=== PATIENT | male | born 1940 | race Caucasian/White ===

== ENCOUNTER 2020-10-06 00:45 | Day surgery (SDC) | payer OTHER, SELFPAY ==
[2020-10-04 09:09] VITALS: BMI 24.0
--- NOTE | 2020-10-04 17:28 | PM.SD2 ---
Same Day Admit/Disch: HPI History of Present Illness Chief complaint: incisional hernia Narrative: Edu Garcia is a 79 year old male Who had coronary artery bypass grafting in July of 2017. He has developed a bulge in the epigastrium as result of his median sternotomy. This is painful and particularly bothers him when he tries to lie on his right side. He was seen in the office and found to have a 3.5 cm incisional hernia in the epigastrium. He is taken to surgery now for incisional hernia repair with mesh as an outpatient by Dr. ch. Patient was also recently seen by his primary care physician, Dr. Song, and diagnosed with out Alzheimer's dementia. He was started on Aricept. He also has a history of COPD, mild LV dysfunction and BPH with obstruction. [facility] Past Medical History Medical History Arthritis Bilateral knees Bilateral cataracts COPD (chronic obstructive pulmonary disease) Coronary artery disease Degenerative disc disease Cervical GERD (gastroesophageal reflux disease) Heart disease Hypercholesterolemia Kidney stones Seasonal allergies Surgical History Surgical History H/O inguinal hernia repair x3 History of open heart surgery Coronary artery bypass graft July 2017, cardiac catheterization July 2017 History of orthopedic surgery Bicep tendon left, October 2004 Family History Family History Mother Family history of Alzheimer's disease, Onset Age: 84 Sibling Family history of cardiovascular disease, Onset Age: 69 Family history of lung disease, Onset Age: 69 Father Cancer Social History Social History Smoking packs per day: 1 Smoking cigarettes per day: 20.0 Years smoked: 40 Smoking pack-years: 40.00 Smoking status: Former smoker Tobacco type: cigarettes Smoking end date: 03/26/97 Alcohol intake: current Substance use: unknown Living arrangements: with family Gender identity (if verbalized by the patient): Male Spiritual care concerns: No Same Day Admit/Disch: Med Pre-admit Medications Home Medications Medication Instructions Recorded Confirmed Type omeprazole 20 mg capsule,delayed 20 mg PO BID #60 cap 02/24/19 10/06/20 Rx release albuterol sulfate 90 mcg/actuation 2 puff INHALATION PRN PRN gm 09/15/19 10/06/20 History aerosol inhaler carvedilol 3.125 mg tablet 3.125 mg PO BID tablet 09/15/19 10/06/20 History finasteride 5 mg tablet 5 mg PO DAILY tablet 09/15/19 10/06/20 History diphenhydramine HCl 25 mg capsule See Rx Instructions .ROUTE .COMPLEX 09/16/19 10/06/20 History rosuvastatin 40 mg tablet 40 mg PO DAILY 09/16/19 10/06/20 History tiotropium 2.5 mcg-olodaterol 2.5 2 puff INHALATION DAILY 09/16/19 10/06/20 History mcg/actuation mist for inhalation furosemide 40 mg tablet 40 mg PO DAILY PRN tablet 08/30/20 10/06/20 History aspirin 325 mg tablet,delayed 325 mg PO HS tablet 08/31/20 10/06/20 History release tamsulosin 0.8 mg PO QPM 10/04/20 10/06/20 History acetaminophen-codeine 1 tablet PO Q6H PRN #10 tablet 10/06/20 Rx ibuprofen 600 mg PO Q6H PRN #14 tablet 10/06/20 Rx Exam Const: General: comfortable, no acute distress, alert and awake HENMT: Head: normocephalic and atraumatic Mouth: Yes Normal oral and palatal mucosa present Eyes: Conjunctivae: conjunctivae normal Pupils: Equal, round and reactive pupils present EOM: EOMs intact bilaterally Neck: Neck: normal visual inspection, no lymphadenopathy and nontender Resp: Effort & Inspection: normal respiratory effort Auscultation: clear to auscultation bilaterally Cardio: Rate: regular rate Rhythm: regular rhythm Heart sounds: no gallops, no murmurs and no rubs GI: Inspection: non-distended, scar ( sternotomy) and visible herniation (
--- NOTE | 2020-10-06 06:54 | WPDHPUPDATE1 ---
History and Physical Update Update Date/Time: 10/06/20 06:54 History and Physical has been reviewed, including an updated exam of the patient. There are NO changes in the patient's condition. Risks, benefits, and alternatives have been discussed and questions answered. Patient agrees to proceed with procedure.
[2020-10-06] MEDS: ACETAMINOPHEN 500 MG TABLET 1000 MG PO (10:38)
[2020-10-06] MEDS: LACTATED RINGERS 1,000 ML 30 ML IV CONT (10:50)
[2020-10-06 10:54] VITALS: BP 125/65; PULSE 68; TEMP 36.2; O2SAT 94
[2020-10-06] MEDS: KETOROLAC 15 MG/ML VIAL (*BKC) IV PUSH (11:05)
--- NOTE | 2020-10-06 11:24 | WPDANESEPPF ---
Anes - Initial Pre Proc Eval Procedure: Operation Date: 10/06/20 12:00 Proposed Procedures p Repair Epigastric Incisional Hernia with Mesh - Hugh Barillas MD Date/Time: 10/06/20 11:24 Surgeon: Hugh Barillas MD Pre Op Diagnosis: incisional hernia Patient Data Age: 79 Gender: M Height: 1.73 m Weight: 71.67 kg Last Vital Signs Temp 36.2 C L 10/06/20 10:54 Pulse 68 10/06/20 10:54 BP 125/65 10/06/20 10:54 Pulse Ox 94 10/06/20 10:54 Allergies Allergy/AdvReac Type Severity Reaction Status Date / Time donepezil [From Aricept] Allergy Diarrhea,NA Verified 10/06/20 10:19 USEA,HEADAC HE Home Medications Medication Instructions Recorded Confirmed Type omeprazole 20 mg capsule,delayed 20 mg PO BID #60 cap 02/24/19 10/06/20 Rx release albuterol sulfate 90 mcg/actuation 2 puff INHALATION PRN PRN gm 09/15/19 10/06/20 History aerosol inhaler carvedilol 3.125 mg tablet 3.125 mg PO BID tablet 09/15/19 10/06/20 History finasteride 5 mg tablet 5 mg PO DAILY tablet 09/15/19 10/06/20 History diphenhydramine HCl 25 mg capsule See Rx Instructions .ROUTE .COMPLEX 09/16/19 10/06/20 History rosuvastatin 40 mg tablet 40 mg PO DAILY 09/16/19 10/06/20 History tiotropium 2.5 mcg-olodaterol 2.5 2 puff INHALATION DAILY 09/16/19 10/06/20 History mcg/actuation mist for inhalation furosemide 40 mg tablet 40 mg PO DAILY PRN tablet 08/30/20 10/06/20 History aspirin 325 mg tablet,delayed 325 mg PO HS tablet 08/31/20 10/06/20 History release tamsulosin 0.8 mg PO QPM 10/04/20 10/06/20 History Patient hx anesthesia problems: none Family hx anesthesia problems: none PMFSH Past Medical History Medical History Arthritis Bilateral knees Bilateral cataracts COPD (chronic obstructive pulmonary disease) Coronary artery disease Degenerative disc disease Cervical GERD (gastroesophageal reflux disease) Heart disease Hypercholesterolemia Kidney stones Seasonal allergies Surgical History Surgical History H/O inguinal hernia repair x3 History of open heart surgery Coronary artery bypass graft July 2017, cardiac catheterization July 2017 History of orthopedic surgery Bicep tendon left, October 2004 Family History Family History Mother Family history of Alzheimer's disease, Onset Age: 84 Sibling Family history of cardiovascular disease, Onset Age: 69 Family history of lung disease, Onset Age: 69 Father Cancer Social History Social History Smoking packs per day: 1 Smoking cigarettes per day: 20.0 Years smoked: 40 Smoking pack-years: 40.00 Smoking status: Former smoker Tobacco type: cigarettes Smoking end date: 03/26/97 Alcohol intake: current Substance use: unknown Living arrangements: with family Gender identity (if verbalized by the patient): Male Spiritual care concerns: No Anes - Eval Final PreProcedure Day of Procedure 10/06/20 11:24 Patient weight: normal Heart: regular rate and rhythm Lungs: clear to auscultation and normal air movement Airway: Mallampati scale class II Neurological: alert and oriented Last oral intake: >/= 8 hours ASA classification: III Emergent: no Anesthetic plan: proceed Anesthesia type and monitoring: general GIVS and standard monitoring Informed Consent: The patient's anesthetic plan and its attendant risks and benefits were discussed with the patient/family/POA. Questions were solicited and answers provided to the satisfaction of the patient/family/POA.
[2020-10-06] MEDS: ceFAZolin 2 GM/D5W 50 ML 2 GM/50 ML BAG IVPB (12:22)
[2020-10-06] MEDS: BUPIVACAINE HCL 0.5% PF 30 ML VIAL INFILTRATE (12:44)
[2020-10-06 13:29] VITALS: BP 154/88; PULSE 67; RESP 12; TEMP 36; O2SAT 95
--- NOTE | 2020-10-06 13:54 | P.OP_ITS ---
Procedure Note - Detailed Date of Procedure 10/06/20 Pre-op Diagnosis Epigastric incisional hernia Post-op Diagnosis same Procedure Performed repair epigastric incisional hernia with 8.6 cm Parietex underlay mesh Surgeon Hugh Barillas MD Acoustic Engineer Sybil Knox [employer]IMINAL [employer]ICE PROGRAM DIRECTOR Anesthesia MAC and local ( 0.5% Marcaine with epinephrine) Indications patient is an 79-year-old man who had coronary bypass grafting about 3 years ago. At the lower into the median sternotomy he has developed an epigastric incisional hernia which has become painful. He is taken to surgery now for repair with mesh. Findings Showed a 2.5 x 2 cm defect just below and to the right of the xiphoid process. Description of Procedure The patient was checked in the preoperative holding area. He was then taken to surgery and placed in supine position. IV sedation was administered. Prep and drape of the upper abdomen and lower chest was carried out. The proposed incision was marked on the skin. This excised the scar from the median sternotomy over the lower most aspect of the sternum as well as the upper epigastrium. The skin was then excised sharply and discarded. Cautery was used for hemostasis. Dissection was carried down through the subcutaneous until the hernia sac and hernia defect were found. I dissected around the hernia defect and dissected the hernia sac out fully. I then excised the sac from the neck of the hernia and discarded it. I undermined around the hernia defect circumferentially so that the fascia and lower chest tissues were readily evident for transfascial suture placement. I used an 8.6 cm Parietex [place]. I dissected out a space in the retroperitoneal area. The peritoneum was closed with interrupted 3 0 Vicryl suture. I then placed the mesh in the preperitoneal space. It lay out very nicely. Transfascial sutures were placed in the abdominal wall and in the lower chest tissues. 0 Ethibond sutures were used. These were placed in such a fashion that when tied, they would advance the edges of the hernia defect towards 1 another. Four of these sutures were placed. They had the desired effect and created a very snug attachment of the mesh to the anterior chest and upper abdomen. I then closed the hernia defect with [id number] mattress sutures of 0 Ethibond. the repair looked very satisfactory. I infiltrated additional local in the area around the repair. I then closed the subcutaneous with interrupted 3 0 Vicryl suture. The skin was loosely approximated with subcuticular interrupted 4 0 Vicryl suture. The skin was finally closed with a running 4 0 Monocryl skin suture. The wound was dressed with Exofin surgical adhesive. The patient was awakened and taken to outpatient surgery in good condition. Sponge and needle counts were correct x2. Implants A 8.6 cm Parietex hernia mesh system Estimated Blood Loss -5.0 Drains No Packing No Pathology none sent Complications None Condition stable Disposition same day
[2020-10-06 13:55] VITALS: BP 135/73; PULSE 62; RESP 14; O2SAT 95
[2020-10-06 14:15] VITALS: BP 136/71; PULSE 54; RESP 14; O2SAT 99
[2020-10-06 14:45] VITALS: BP 144/76; PULSE 54; RESP 14; O2SAT 99
[2020-10-06 15:00] VITALS: BP 134/62; PULSE 60; RESP 14; O2SAT 96
== END 2020-10-06 15:07 | disposition home or self-care (01) ==
PROVIDERS: PCP Emergency Medicine; Visit Provider Surgery
PROC: 0WQF0ZZ Repair Abdominal Wall, Open Approach (ICD-10-PCS; CPT 49560; principal; 2020-10-06 12:00)
DX: K43.2 Incisional hernia without obstruction or gangrene (principal); J44.9 Chronic obstructive pulmonary disease, unspecified; E78.5 Hyperlipidemia, unspecified; I25.10 Atherosclerotic heart disease of native coronary artery without angina pectoris; M50.30 Other cervical disc degeneration, unspecified cervical region; E78.00 Pure hypercholesterolemia, unspecified; K21.9 Gastro-esophageal reflux disease without esophagitis; Z79.51 Long term (current) use of inhaled steroids; Z79.82 Long term (current) use of aspirin; Z95.1 Presence of aortocoronary bypass graft; Z87.891 Personal history of nicotine dependence
CPT/HCPCS: 49560; 49568; A9270; C1781; C9290; J0690; J1100; J1885; J2405; J2704; J3010; J7120

== ENCOUNTER 2021-10-27 09:59 | Outpatient (CLI) | payer OTHER, SELFPAY ==
--- NOTE | ~2021-10-27 | XR_ITS ---
XR chest 2V DATE: 10/27/2021 10:23 INDICATION: Cough, fever, shortness of breath. TECHNIQUE: PA and lateral views COMPARISON: 07/23/2017 two-view chest FINDINGS: Status post sternotomy and coronary artery bypass graft surgery. Normal heart size. There i s aortic calcification and tortuosity. No hilar or mediastinal enlargement. Bilateral hyperinflation and relative flattening the diaphragm, suggesting COPD. Minimal infiltrate o r atelectasis at the right lung base; otherwise no pulmonary infiltrate or consolidation, pleural eff usion or pulmonary vascular congestion or pneumothorax is detected. Moderate chronic loss of height and anterior wedging of an upper lumbar vertebral body. Osteopenia. D egenerative spurring of the thoracic and lumbar spine. IMPRESSION: Bilateral hyperinflation suggesting COPD Status post sternotomy/CABG Minimal infiltrate or atelectasis at the right lung base; otherwise no active cardiopulmonary disease Reviewed, dictated and finalized at location B. IMPRESSION: Bilateral hyperinflation suggesting COPD Status post sternotomy/CABG Minimal infiltrate or atelectasis at the right lung base; otherwise no active c ardiopulmonary disease
== END 2021-10-27 10:00 | disposition home or self-care (01) ==
PROVIDERS: PCP Family Medicine; Visit Provider Physician Assistant
DX: R05.9 Cough, unspecified (principal); Z95.1 Presence of aortocoronary bypass graft; I70.0 Atherosclerosis of aorta; M85.88 Other specified disorders of bone density and structure, other site
CPT/HCPCS: 71046

== ENCOUNTER 2022-01-09 00:36 | Day surgery (SDC) | payer OTHER, SELFPAY ==
[2022-01-06 15:20] VITALS: BMI 23.4
[2022-01-09] VITALS (25 sets, daily range): BP systolic 70–135; BP diastolic 39–81; PULSE 63–78; RESP 16–24; TEMP 36.3; O2SAT 90–98; BMI 23.1
[2022-01-09 09:01] LABS: Basophils Absolute Auto 0.1 K/mm3 (0.0-0.1); Basophils Percent Auto 0.9 % (0.2-1.2); Eosinophils Absolute Auto 0.2 K/mm3 (0-0.3); Eosinophils Percent Auto 3.1 % (0-4.4); Hematocrit 39.9 % (42.0-52.0); Immature Granulocyte Absolute 0.01 K/mm3 (0.00-0.031); Immature Granulocyte Percent A 0.2 % (0-0.5); Lymphocytes Absolute Auto 1.54 K/mm3 (0.9-3.2); Lymphocytes Percent Auto 26.4 % (18.3-44.2); Mean Corpuscular HGB Conc 32.6 g/dl (32-36); Mean Corpuscular Hemoglobin 29.2 pg (26-34); Mean Corpuscular Volume 89.7 fl (80-100); Mean Platelet Volume 9.2 fl (7.4-10.4); Monocytes Absolute Auto 0.6 K/mm3 (0.1-0.6); Monocytes Percent Auto 10.4 % (2.6-8.5); Neutrophils Absolute Auto 3.5 K/mm3 (1.3-6.7); Platelet Count Result 139 k/mm3 (150-375); Red Blood Count 4.45 M/mm3 (4.6-6.20); White Blood Count 5.8 K/mm3 (4.5-10.0)
[2022-01-09 09:10] LABS: Anion Gap 7 mmol/L (8-16); Blood Urea Nitrogen 27 mg/dL (9-20); Calcium 8.6 mg/dL (8.4-10.2); Carbon Dioxide 25 mmol/L (22-30); Chloride 106 mmol/L (98-107); Estimated CRCL calculation 25 ml/min; Estimated Glomerular Filt Rate 32; Glucose 101 mg/dL (65-110); Potassium 4.2 mmol/L (3.4-5.0); Sodium 138 mmol/L (137-145)
--- NOTE | 2022-01-09 09:36 | WPDMODSED ---
Moderate Sedation Note-Pt Data Patient Data Diagnosis: ischemic cardiomyopathy previous CABG Present Complaint: exertional dyspnea Procedure to be performed/Plan: coronary angiography OK graft angiography radial artery graft angiography saphenous vein graft angiography Allergies Allergy/AdvReac Type Severity Reaction Status Date / Time donepezil [From Aricept] Allergy Diarrhea,NA Verified 01/09/22 08:49 USEA,HEADAC HE Home Medications Medication Instructions Recorded Confirmed Type finasteride 5 mg tablet 5 mg PO DAILY 09/15/19 01/06/22 History diphenhydramine HCl 25 mg capsule 50 mg PO HS 09/16/19 01/06/22 History (Benadryl) rosuvastatin 40 mg tablet 40 mg PO DAILY 09/16/19 01/06/22 History furosemide 40 mg tablet 40 mg PO PRN PRN edema 08/30/20 01/06/22 History aspirin 325 mg tablet,delayed 325 mg PO HS 08/31/20 01/06/22 History release tamsulosin 0.4 mg capsule 0.4 mg PO QPM 10/04/20 01/06/22 History nitroglycerin 0.4 mg sublingual 0.4 mg sublingual Q5M PRN Chest 11/10/20 01/06/22 History tablet (Nitrostat) Pain carvedilol 3.125 mg tablet 6.25 mg PO BID 05/17/21 01/06/22 History pantoprazole 40 mg tablet,delayed 40 mg PO Q12H #180 tabs 10/14/21 01/06/22 Rx release (Protonix) albuterol sulfate 90 mcg/actuation 2 puff inhalation PRN PRN 10/26/21 01/06/22 Rx aerosol inhaler Shortness Of Breath #6.7 grams tiotropium 2.5 mcg-olodaterol 2.5 2 puff inhalation DAILY 11/04/21 01/06/22 History mcg/actuation mist for inhalation (Stiolto Respimat) sacubitril 24 mg-valsartan 26 mg 0.5 tablet PO BID 01/06/22 01/06/22 History tablet (Entresto) Current Medications: Active Medications Sodium Chloride (Normal Saline Iv) 500 mls @ 100 mls/hr IV CONT .Q5H JENI Sedation/Anesthesia: No previous sedation/anesthesia problems (including family history). [facility] Past Medical History Medical History Arthritis Bilateral knees Bilateral cataracts COPD (chronic obstructive pulmonary disease) Coronary artery disease Degenerative disc disease Cervical GERD (gastroesophageal reflux disease) Heart disease Hypercholesterolemia Kidney stones Seasonal allergies Surgical History Surgical History H/O inguinal hernia repair x3 History of incisional hernia repair 10/06/20 repair epigastric incisional hernia with 8.6 cm Parietex underlay mesh History of open heart surgery Coronary artery bypass graft July 2017, cardiac catheterization July 2017 History of orthopedic surgery Bicep tendon left, October 2004 Family History Family History Mother Family history of Alzheimer's disease, Onset Age: 84 Sibling Family history of cardiovascular disease, Onset Age: 69 Family history of lung disease, Onset Age: 69 Father Cancer Social History Social History Smoking packs per day: 1 Smoking cigarettes per day: 20.0 Years smoked: 40 Smoking pack-years: 40.00 Smoking status: Former smoker Tobacco type: cigarettes Second hand tobacco smoke exposure: No Smoking end date: 03/26/97 Alcohol intake: current Drinks per week: 1 Alcohol use details: 1 beer/week Substance use: never Substance use type: does not use Living arrangements: with family Gender identity (if verbalized by the patient): Male Sexual Orientation (if Verbalized by the Patient): Straight or Heterosexual Spiritual care concerns: No Mod Sed Physical Exam Physical Exam Pre Procedural Exam: Normal: Appearance, Neck, Throat, Airway, Lungs, Heart Size, Heart Rate, Heart Rhythm and Neuro Exam and Variation: Extremities ( pulses diminished in the lower extremities) Hours since solid foods: 12 Hours since liquid intake: 12 Mallampati Classification: class II Int
--- NOTE | 2022-01-09 10:35 | WPDCARDPROC ---
Cardiac Cath Procedure Note Date of procedure:: 01/09/22 Performing physician:: Felipe Bhatt MD Indication:: ischemic heart disease with previous CABG ischemic cardiomyopathy abnormal nuclear stress test Brief clinical history:: this is an 81-year-old man known to have coronary disease was referred for bypass grafting previously. He is followed in our office. He is reporting symptoms of worsening exertional shortness of breath. He is known to have reduced ejection fraction of about 30% and stress testing suggested previous inferior infarction. The patient has now been referred for follow-up angiography. He does have chronic kidney disease with a creatinine of 2.0 for this reason I elected to forego left ventriculography. Procedure Procedure performed:: Coronary angiography vein graft angiogr Sara Snow RN, [place] angiography radial artery graft angiography Sedation/Medication given:: fentanyl 25 mill Versed 2 mg case start time 9:49 a.m. case end time 10:32 a.m. sedation provided by Sara Snow RN, trained observer Access site:: right femoral artery Estimated blood loss:: 50 cc Procedure note:: patient was brought to the cardiac catheterization lab in the postabsorptive state where the right femoral triangle was prepared and draped in the normal fashion. Anesthesia was 1% lidocaine infiltrated locally. Using the modified Seldinger technique the right femoral artery was punctured and a 5 Cambodian vascular sheath was placed. The J-wire would not easily advance the from the iliac artery into the central aorta. There was significant atherosclerosis and tortuosity. For that reason I used a Maura wire which advanced to the distal aorta and then down the left iliac artery. Over this system I used a 5 Cambodian JR4 catheter to steer the Maura wire cephalad into the aorta. This wire was then advanced into the thoracic aorta. Over the Maura wire I placed a 5 Cambodian 45 cm sheath to facilitate this procedure given the peripheral arterial disease and tortuosity. Following this I used a 5 Cambodian FL4 catheter to engage and inject the left coronary artery. Then I used a 5 Cambodian JR4 catheter to engage and inject the right coronary artery. This catheter was also used to perform angiography of the vein graft to the circumflex. I then changed for a 5 Cambodian IM catheter which was used to non selectively study the left internal mammary artery as well as to study the vein graft to the diagonal. Following this I injected the stump of the radial artery graft to the right coronary artery using a 5 Cambodian MPA 1 catheter. The cineangiograms were then reviewed and the case was terminated. I elected to pull the sheath in the labor contract analyst as there was some oozing around the arterial puncture site during the last part of the case. There was no accumulating hematoma however. Procedure was otherwise well tolerated and uncomplicated. He will be taken back to the holding area for recovery following manual sheath removal. Findings:: Hemodynamics: Central aortic pressure was 132/82. The left ventricle was not entered during this procedure the left main coronary artery is small to medium in caliber. There was mild atherosclerosis but no significant lesions were seen. The left anterior descending is a medium caliber artery patent down to the apex. There is no significant stenosis in the LAD there is mild atherosclerotic plaquing in the proximal half of the artery. The major diagonal branch has a high-grade stenosis with competitive filling from the patent vein graft. There is no competitive filling in the LAD itself. The LAD then continues around the apex to provide collateral flow to the RPDA. The circumflex is a small diffusely diseased artery which is totally occluded after a very small OM1 branch. Right coronary artery is small in caliber was dominant to the posterior circulation. There is high-grade long area of 99% s
[2022-01-09] MEDS: SODIUM CHLORIDE 0.9% IV 1,000 ML 125 ML IV CONT (11:36)
--- NOTE | 2022-01-09 13:51 | SUR.PHASEII ---
pt BP dropped to 70s/50s. RN & KEY BED INSTALLER at bedside. pt A&Ox4, no hematoma or bleeding at the R groin puncture site. No complaints of pain. RN put the pt flat and bumped IVF to 200cc/hr per KEY BED INSTALLER verbal order. Will stay with pt and monitor vitals Q5 min until stable.
== END 2022-01-09 16:00 | disposition home or self-care (01) ==
PROVIDERS: PCP Family Medicine; Visit Provider Specialist
DX: I25.5 Ischemic cardiomyopathy (principal); R94.39 Abnormal result of other cardiovascular function study; I25.10 Atherosclerotic heart disease of native coronary artery without angina pectoris; I25.810 Atherosclerosis of coronary artery bypass graft(s) without angina pectoris; R06.02 Shortness of breath; R07.9 Chest pain, unspecified; I49.3 Ventricular premature depolarization; N18.30 Chronic kidney disease, stage 3 unspecified; K21.9 Gastro-esophageal reflux disease without esophagitis; Z87.891 Personal history of nicotine dependence; Z79.51 Long term (current) use of inhaled steroids; Z79.82 Long term (current) use of aspirin
CPT/HCPCS: 36415; 80048; 85025; 85055; 93455; C1769; C1887; C1894; J1644; J2250; J3010; J7030; J7040

== ENCOUNTER 2022-02-01 15:58 | Emergency (ER) | payer OTHER, SELFPAY ==
--- NOTE | ~2022-02-01 | XR_ITS ---
EXAMINATION: XR chest 2V DATE: 02/01/2022 17:24 INDICATION: Chest pain TECHNIQUE: PA and lateral views of the chest are obtained. COMPARISON: 10/27/2021 FINDINGS: The lungs are free of acute opacities. No pleural effusion or pneumothorax. The cardiomedia stinal silhouette is normal. There is moderate thoracic spondylosis. There is a chronic compression f racture in the lower thoracic spine. Median sternotomy wires and mediastinal surgical clips are seen, likely from prior coronary artery bypass grafting. IMPRESSION: 1. No acute cardiopulmonary abnormality. Reviewed, dictated and finalized at location B. 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
[2022-02-01 16:04] VITALS: BP 124/85; PULSE 89; RESP 14; TEMP 38.6; O2SAT 93
--- NOTE | 2022-02-01 16:15 | ECG_ITS ---
Measurements Intervals [place] Rate: 88 P: 68 LA: 140 QRS: -11 QRSD: 114 T: 32 QT: 340 QTc: 413 Interpretive Statements SINUS RHYTHM VENTRICULAR PREMATURE COMPLEXES INCOMPLETE RIGHT BUNDLE BRANCH BLOCK INFERIOR INFARCT, AGE INDETERMINATE BORDERLINE ST-T WAVE ABNORMALITY- LAT/HIGH LAT LEADS ABNORMAL ECG NO PREVIOUS ECG AVAILABLE FOR COMPARISON Electronically Signed On 02-01-2022 20:06:45 HUMAN RESOURCES LEADER by Sylvester Claire D.O.
[2022-02-01 16:36] LABS: Basophils Percent Auto 0.2 % (0.2-1.2); Eosinophils Absolute Auto 0.1 K/mm3 (0-0.3); Eosinophils Percent Auto 0.5 % (0-4.4); Hematocrit 38.7 % (42.0-52.0); Hemoglobin 12.5 g/dL (14.0-18.0); Immature Granulocyte Absolute 0.03 K/mm3 (0.00-0.031); Immature Granulocyte Percent A 0.3 % (0-0.5); Immature Platelet Fraction Pct 2.4 % (0.9-11.2); Lymphocytes Absolute Auto 1.03 K/mm3 (0.9-3.2); Lymphocytes Percent Auto 9.8 % (18.3-44.2); Mean Corpuscular HGB Conc 32.3 g/dl (32-36); Mean Corpuscular Hemoglobin 29.1 pg (26-34); Mean Corpuscular Volume 90.2 fl (80-100); Mean Platelet Volume 9.5 fl (7.4-10.4); Monocytes Absolute Auto 0.9 K/mm3 (0.1-0.6); Monocytes Percent Auto 8.9 % (2.6-8.5); Neutrophils Absolute Auto 8.5 K/mm3 (1.3-6.7); Neutrophils Percent Auto 80.3 % (45.5-73.1); Platelet Count Result 133 k/mm3 (150-375); Red Blood Count 4.29 M/mm3 (4.6-6.20); Red Cell Distribution Width 14.6 % (11.5-14.5); White Blood Count 10.6 K/mm3 (4.5-10.0)
[2022-02-01 16:45] LABS: INR 1.2; Prothrombin Time 14.3 Seconds (11.1-14.7)
[2022-02-01 16:46] LABS: Partial Thromboplastin Time 27.5 SECONDS (22.3-36.8)
[2022-02-01 16:52] LABS: Alanine Aminotransferase 21 U/L (6-50); Alkaline Phosphatase 130 U/L (38-126); Anion Gap 14 mmol/L (8-16); Aspartate Amino Transferase 25 U/L (17-59); Bilirubin,Total 0.6 mg/dL (0.2-1.3); Blood Urea Nitrogen 26 mg/dL (9-20); Calcium 8.3 mg/dL (8.4-10.2); Carbon Dioxide 24 mmol/L (22-30); Chloride 101 mmol/L (98-107); Estimated CRCL calculation 25 ml/min; Estimated Glomerular Filt Rate 32; Glucose 134 mg/dL (65-110); Lipase 38 U/L (23-300); Potassium 4.5 mmol/L (3.4-5.0); Sodium 139 mmol/L (137-145)
[2022-02-01 17:03] LABS: Troponin I < 0.012 ng/mL (0.000-0.034)
[2022-02-01 17:20] LABS: Influenza A QL RT-PCR Negative (Negative); Influenza B QL RT-PCR Negative (Negative); SARS-CoV-2 RNA PCR Negative
--- NOTE | 2022-02-01 19:15 | ED.FEVER ---
HPI - Fever General Chief Complaint: Fever Stated Complaint: fever, cough Time Seen by Provider: 02/01/22 19:04 History of Present Illness HPI Narrative: Pt presents with fever and cough for several days. Pt denies SOB. Pt had pneumonia over the summer and had similar symptoms. Pt had brief syncopal episode over the weekend while his was putting on his tie and his collar was tight. Pt denies runny nose or urinary symptoms. Related Data Home Medications Medication Instructions Recorded Confirmed finasteride 5 mg tablet 5 mg PO DAILY 09/15/19 01/06/22 diphenhydramine HCl 25 mg capsule 50 mg PO HS 09/16/19 01/06/22 (Benadryl) rosuvastatin 40 mg tablet 40 mg PO DAILY 09/16/19 01/06/22 furosemide 40 mg tablet 40 mg PO PRN PRN edema 08/30/20 01/06/22 aspirin 325 mg tablet,delayed 325 mg PO HS 08/31/20 01/06/22 release tamsulosin 0.4 mg capsule 0.4 mg PO QPM 10/04/20 01/06/22 nitroglycerin 0.4 mg sublingual 0.4 mg sublingual Q5M PRN Chest 11/10/20 01/06/22 tablet (Nitrostat) Pain carvedilol 3.125 mg tablet 6.25 mg PO BID 05/17/21 01/06/22 tiotropium 2.5 mcg-olodaterol 2.5 2 puff inhalation DAILY 11/04/21 01/06/22 mcg/actuation mist for inhalation (Stiolto Respimat) sacubitril 24 mg-valsartan 26 mg 0.5 tablet PO BID 01/06/22 01/06/22 tablet (Entresto) Allergies Allergy/AdvReac Type Severity Reaction Status Date / Time donepezil [From Aricept] Allergy Diarrhea,NA Verified 01/09/22 08:49 LUCILA MICHELLE Review of Systems Review of Systems: All systems reviewed & are unremarkable except as noted in HPI and below PMFSH Past Medical History Medical History Arthritis Bilateral knees Bilateral cataracts COPD (chronic obstructive pulmonary disease) Coronary artery disease Degenerative disc disease Cervical GERD (gastroesophageal reflux disease) Heart disease Hypercholesterolemia Kidney stones Seasonal allergies Surgical History Surgical History H/O inguinal hernia repair x3 History of incisional hernia repair 10/06/20 repair epigastric incisional hernia with 8.6 cm Parietex underlay mesh History of open heart surgery Coronary artery bypass graft July 2017, cardiac catheterization July 2017 History of orthopedic surgery Bicep tendon left, October 2004 Family History Family History Mother Family history of Alzheimer's disease, Onset Age: 84 Sibling Family history of cardiovascular disease, Onset Age: 69 Family history of lung disease, Onset Age: 69 Father Cancer Social History Social History Smoking packs per day: 1 Smoking cigarettes per day: 20.0 Years smoked: 40 Smoking pack-years: 40.00 Smoking status: Former smoker Tobacco type: cigarettes Second hand tobacco smoke exposure: No Smoking end date: 03/26/97 Alcohol intake: current Drinks per week: 1 Alcohol use details: 1 beer/week Substance use: never Substance use type: does not use Gender identity (if verbalized by the patient): Male Sexual Orientation (if Verbalized by the Patient): Straight or Heterosexual Spiritual care concerns: No Exam Const: General: healthy appearing Nutritional Appearance: well nourished Orientation/consciousness: patient oriented x3 Limitations: no limitations Eyes: EOM: EOMs intact bilaterally Chest: Chest palpation & inspection: normal inspection of the chest Resp: Effort & Inspection: normal respiratory effort Auscultation: wheezes Cardio: Rate: regular rate Rhythm: regular rhythm GI: GI Palp: Yes Soft to palpation Auscultation: normal bowel sounds Skin: General skin exam: normal color Rashes: no rashes Neuro: General: patient oriented x3, moves all extremities, no meningeal signs, no focal motor defic
[2022-02-01 19:45] VITALS: PULSE 100; RESP 20
[2022-02-01] MEDS: IPRATROPIUM BR 0.02% INH SOLN 0.5 MG/2.5 ML VIAL INHALATION (19:48)
[2022-02-01 19:50] LABS: Troponin I < 0.012 ng/mL (0.000-0.034)
[2022-02-01] MEDS: ALBUTEROL SULFATE NEB 2.5 MG/3 ML INH INHALATION (19:51)
[2022-02-01 19:56] VITALS: PULSE 91; RESP 20
[2022-02-01] MEDS: predniSONE 20 MG TABLET 60 MG PO (20:41)
== END 2022-02-01 22:30 | disposition home or self-care (01) ==
PROVIDERS: Emergency Medicine; Emergency Provider Emergency Medicine; PCP Family Medicine
DX: J40 Bronchitis, not specified as acute or chronic (principal); Z20.822 Contact with and (suspected) exposure to COVID-19; Z87.891 Personal history of nicotine dependence; M19.90 Unspecified osteoarthritis, unspecified site; J44.9 Chronic obstructive pulmonary disease, unspecified; K21.9 Gastro-esophageal reflux disease without esophagitis; I25.10 Atherosclerotic heart disease of native coronary artery without angina pectoris
CPT/HCPCS: 36415; 71046; 80053; 83690; 84484; 85025; 85055; 85610; 85730; 87636; 93005; 94640; 99284; A9270; J7512

== ENCOUNTER 2023-01-02 16:28 | Outpatient (CLI) | payer OTHER, SELFPAY ==
--- NOTE | ~2023-01-02 | CT_ITS ---
EXAMINATION: CT abdomen pelvis wo con DATE: 01/02/2023 16:44 INDICATION: Hematuria, right flank pain TECHNIQUE: Computed tomography (CT) of the abdomen and pelvis was performed without intravenous contr ast. The dose-length product (DLP) was 406.40 mGy-cm. Automated exposure control and iterative recons truction technique were employed. COMPARISON: 07/07/2014 FINDINGS: Minimal dependent atelectasis is present in the lung bases. The heart size is normal. There is a moderate-sized hiatal hernia. Moderate emphysema is noted in the visualized lung bases. Punctat e calcifications in otherwise normal appearing liver and spleen likely represent healed granulomatous disease. The pancreas, gallbladder, and adrenal glands are normal. There is a 1.7 cm cyst of the lef t kidney. The right kidney is unremarkable. No stones are identified in the kidneys, ureters, or blad manasa. No hydronephrosis or hydroureter. There is a 1.4 cm soft tissue density mass of the right counseling director olateral bladder wall near the ureteral insertion. No pathologically enlarged abdominal or pelvic lym ph nodes are identified. No free intraperitoneal gas or evidence of bowel obstruction. There are [place] ges of bilateral inguinal hernia repair. Colonic diverticulosis is present without evidence of divert iculitis. There is severe lumbar spondylosis. There is a chronic T12 compression fracture. There is a 3.2 cm fusiform infrarenal abdominal aortic aneurysm. IMPRESSION: 1. Soft tissue mass of the right posterolateral bladder wall concerning for urothelial carcinoma. Uro logic evaluation is recommended. 2. Diverticulosis without evidence of diverticulitis. 3. Fusiform infrarenal abdominal aortic aneurysm. Reviewed, dictated and finalized at location F. IMPRESSION: 1. Soft tissue mass of the right posterolateral bladder wall concerning for uro thelial carcinoma. Urologic evaluation is recommended. 2. Diverticulosis without evidence of diverticulitis. 3. Fusiform infrarenal abdominal aortic aneurysm.
== END 2023-01-02 16:29 | disposition home or self-care (01) ==
PROVIDERS: PCP Family Medicine; Visit Provider Physician Assistant
DX: K57.90 Diverticulosis of intestine, part unspecified, without perforation or abscess without bleeding (principal); I71.43 Infrarenal abdominal aortic aneurysm, without rupture; M79.89 Other specified soft tissue disorders; R31.9 Hematuria, unspecified
CPT/HCPCS: 74176

== ENCOUNTER 2025-03-12 10:53 | Outpatient (CLI) | payer OTHER, SELFPAY ==
--- NOTE | ~2025-03-12 | CT_ITS ---
EXAMINATION:CT diagnostic chest wo con DATE: 03/12/2025 11:13 INDICATION: COPD TECHNIQUE: Computed tomography (CT) of the chest was performed without intravenous contrast. The dose-length product (DLP) was 148.18 mGy-cm. COMPARISON: None. FINDINGS: Advanced emphysematous changes particularly in the upper lobes. 8 x 4 mm slightly spiculated appearing nodule in the right lung apex image 19 series 4. 4 x 4 mm subpleural nodule right upper lobe image 34 series 4. Small reticulation nodules in the right lung base. Scattered calcified granulomas. Nodules. 10 x 6 x 6 mm spiculated nodule posterior right upper lobe image 38 series 4, and image 81 of the coronal series. No focal consolidation effusion or pneumothorax. No bulky lymphadenopathy or mediastinal masses. Heart and great vessels normal in size. Extensive coronary artery stenting and calcification. Sternal retention wires present. Diffuse degenerative changes throughout the bony thorax. Mild anterior wedge deformity or probable chronic fracture involving T12. Moderate-sized hiatal hernia. No acute process seen in the visualized upper abdomen. IMPRESSION: 1. Several right-sided lung nodules with malignant nodule not excluded. The 10 mm right upper lobe nodule is most prominent and could be evaluated with either PET CT or short interval follow-up chest CT in 3 months. 2. Other findings as above. Reviewed, dictated and finalized at location [facility]. [facility]
--- OUTSIDE RECORDS SUMMARY | 2025-03-12 12:09 | XMS_ITS | Clinical Summary ---
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 18 g 1 08/29/19 18 Active diphenhydrAMINE (BENADRYL) 25 mg capsuleIndications :sleep Take 2 tablet/capsule (50 mg total) by mouth nightly Active furosemide (LASIX) 40 mg tablet Take 1 tablet (40 mg total) by mouth daily 90 tablet 3 02/08/[address] (PROTONIX) 40 mg EC tabletIndications: Treatment of Non-Bleeding Gastric Disorder Take 1 tablet (40 mg total) by mouth every 12 (twelve) hours 10/15/19 22 Active Trelegy Ellipta 100-62.5-25 mcg inhalerIndications :Bronchospasm Prevention with COPD Inhale 1 puff every morning 05/18/19 23 Active azelastine (ASTELIN) 137 mcg (0.1 %) nasal sprayIndications:S easonal Allergic Rhinitis Administer 1 spray into each nostril 2 (two) times a day 01/06/20 23 Active sodium chloride (CHRISTA 128) 5 % ophthalmic solutionIndication s:Corneal Edema Administer 1 drop into both eyes 2 (two) times a day Active sacubitriL-valsart an (ENTRESTO) 24-26 mg tabletIndications: chronic heart failure Take 0.5 tablets by mouth 2 (two) times a day 90 tablet 3 03/02/20 23 Active aspirin 325 mg enteric coated tabletIndications: prevention of thrombosis Take 1 tablet (325 mg total) by mouth nightly 04/09/19 24 Active carvediloL (COREG) 6.25 mg tabletIndications: Ischemic cardiomyopathy TAKE 1 TABLET BY MOUTH TWICE A DAY WITH FOOD 180 tablet 3 04/21/19 25 Active vitamin b complex tablet Take 1 tablet by mouth daily Active albuterol 2.5 mg /3 mL (0.083 %) nebulizer solution Take 3 mL (2.5 mg total) by nebulization 2 (two) times a day 09/05/19 25 Active rosuvastatin (CRESTOR) 40 mg tablet TAKE 1 TABLET BY MOUTH EVERY DAY AT NIGHT 90 tablet 2 10/11/19 25 Active isosorbide mononitrate ER (IMDUR) 60 mg 24 hr tabletIndications: Stable angina pectoris TAKE 2 TABLETS BY MOUTH DAILY. 180 tablet 1 11/12/19 25 Active mirabegron ER (MYRBETRIQ) 50 mg tablet extended release 24 hr Take 1 tablet (50 mg total) by mouth daily 30 tablet 11 12/19/19 25 Active trospium XR (SANCTURA XR) 60 mg capsule,extended release 24hr Take 1 capsule (60 mg total) by mouth daily 30 capsule 2 12/27/19 25 Active finasteride (PROSCAR) 5 mg tablet TAKE 1 TABLET (5 MG TOTAL) BY MOUTH DAILY. 90 tablet 3 12/31/19 25 026 Active nitroglycerin (NITROSTAT) 0.[address] 1 tablet (0.4 mg total) under the tongue every 5 (five) minutes as needed for chest pain (May repeat every 5 min up to 3 tabs in 15 min.) 25 tablet 5 02/17/20 25 Active nitroglycerin (NITROSTAT) 0.4 mg SL tablet DISSOLVE 1 TAB UNDER TONGUE EVERY 5 MINS NEEDED FOR CHEST PAIN UP TO 3 DOSES TOTAL 25 tablet 5 07/02/19 24 025 Discontin ued(Reord er) Active Problems Problem Noted Date Diagnosed Date Peripheral visual field defect of both eyes 09/2023 Myogenic ptosis of eyelid of both eyes 4 Ptosis of both eyelids 07/31/2023 Mechanical ptosis of bilateral eyelids 4 Malignant neoplasm of trigone of urinary bladder 02/13/2023 Anemia in chronic kidney disease 01/15/2023 Bladder tumor 01/15/2023 Chronic systolic congestive heart failure 2021 JO (dyspnea on exertion) 12/13/2021 Atypical chest pain 05/20/2018 Peripheral artery disease 10/23/2017 Pulmonary hypertension 10/23/2017 Stage 3 chronic kidney disease 07/27/2017 Hyperlipidemia LDL goal <70 07/27/2017 Chest heaviness 07/27/2017 Coronary artery disease of n ative artery of [place] heart with stable angina pectoris 07/27/2017 Abnormal stress test 07/27/2017 Cardiomyopathy 07/27/2017 Palpitations 07/27/2017 Lipid screening 07/27/2017 Chest heaviness 07/27/2017 Encounter for preventive health examination 06/2017 Evaluation by medical service required 7 Pleural effusion Chronic obstructive pulmonary disease Encounters Date Type Department Care Team Description 12/30/2024 Telephone [facility] Medicine Phys[facility] Surgery [address] [place] [address] [phone] Radha Arcos RMA 12/18/2024 1:03 PM CDT - 12/18/2024 11:59 PM CDT Hospital Encounter [facility] [address] [place] [id number] Malignant neoplasm of urinary bladder, unspecified site (HCC) Discharge Disposition: Discharge to home or self care 12/18/2024 11:40 AM CDT Office Visit [facility] [place] [facility] [address] [place] [address] [phone] Dinesh Evangelista MD Malignant neoplasm of urinary bladder, unspecified site (HCC) (Primary Dx) from Last 3 Months Surgical History Surgery Date Site/Laterality Comments BICEPS TENDON REPAIR Left due to rupture CATARACT EXTRACTION W/ INTRAOCULAR LENS IMPLANT, BILATERAL 03/26/2020 - 03/25/2021 CARDIAC CATHETERIZATION 03/26/2017 - 03/25/2018 THORACENTESIS W IMAGING LEFT 08/21/[address] CHEST TUBE INSERTION LEFT 08/24/2017 N/A CORONARY ARTERY BYPASS GRAFT 08/08/2017 INGUINAL HERNIA REPAIR 03/26/2007 - 03/25/2008 Bilateral x2 TRANSURETHRAL RESECTION OF BLADDER 02/08/2023 and R ureteeral stent placement HERNIA REPAIR unknown TRANSURETHRAL RESECTION OF BLADDER TUMOR 07/11/2023 BLEPHAROPTOSIS REPAIR CATARACT EXTRACTION ? Medical History Medical History Date Comments Arthritis Enlarged prostate Hyperlipidemia Abnormal cardiovascular stress test 07/23/2017 Cataract bilateral History of hepatitis GERD (gastroesophageal reflux disease) don't kno w Arthritis chronic Cataract surgically removed Heart disease Infectious viral hepatitis childhood Stage 3 chronic kidney disease (HCC) 07/27/2017 Coronary artery disease of n ative artery of [place] heart with stable angina pectoris 07/27/2017 Cardiomyopathy 07/27/2017 Chronic obstructive pulmonary disease Peripheral artery disease 10/23/2017 Pulmonary hypertension (HCC) 10/23/2017 Chronic systolic congestive heart failure (HCC) 12/13/2021 Anemia in chronic kidney disease 01/15/2023 Bladder tumor 01/15/2023 Ptosis of eyelid, bilateral Malignant neoplasm of trigone of urinary bladder (HCC) 02/13/2023 Chronic bronchitis (HCC) Family History Medical History Relation Name Comments Heart disease Brother Colt Garcia Cancer Father Edison Garcia Alzheimer's disease Mother Margarette Garcia Memory loss Mother Margarette Garcia Anesthesia problems Neg Hx Relation Name Status Comments Brother Colt Garcia Father Edison Garcia Mother Margarette Garcia Social History Tobacco Use Types Packs/Day Years Used Date Smoking Tobacco: Former Cigarettes 1 30 0 03/26/1987 - 2017 Smokeless Tobacco: Never Tobacco Cessation:Counseling Given: Not Answered Comments:pt uses e cigarette Alcohol Use Standard Drinks/Week Comments Yes 0 (1 standard drink = 0.6 oz pur e alcohol) 2x/month AUDIT-C Answer Date Recorded Q1: How often do you have a drink containing alc ohol? 2-3 times a week 12/28/2023 Q2: How many drinks containi ng alcohol do you have on a typical day when you are drinking? 1 or 2 12/28/2023 Q3: How often do you have si x or more drinks on one occasion? Never 12/28/2023 Personal Safety Answer Date Recorded Have you ever been in or are you currently in a harmful physical or emotional relationship or is someone making you feel afraid or unsafe? 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 Gender Identity Male 12/14/2020 7:56 AM CDT Sexual Orientation Straight 12/14/2020 7: 56 AM CDT Last Filed Vital Signs Vital Sign Reading Time Taken Comments Blood Pressure 110/64 09/17/2024 2:27 PM CDT Pulse 58 09/17/2024 2:23 PM CDT Temperature 36.7 C (98.1 F) 05/08/2024 9:56 AM SUPERVISOR LEAD BURNING Respiratory Rate 16 05/08/2024 9:56 AM SUPERVISOR LEAD BURNING Oxygen Saturation 93% 09/17/2024 2:23 PM CDT Inhaled Oxygen Concentration - - Weight 68.5 kg (151 lb) 12/18/2024 11:39 AM CDT Height 172.7 cm (5' 8) 12/18/2024 11:39 AM CDT Body Mass Index 22.96 12/18/2024 11:39 AM CDT Plan of Treatment Health Maintenance Due Date Last Done Comments Depression Screening 1940 DTaP/Tdap/Td Vaccine (1 - Tdap) 1949 Hepatitis B Screening 1958 Well Visit 65+ 11/14/2003 Pneumococcal vaccine 65+ (2 of 2 - PPSV23, PCV20, or PCV21) 03/25/2017 01/28/2017 Covid-19 Vaccine (4 - 2024-2 6 season) 2024 01/24/2021, 06/14/2020, 05/06/2020 Influenza Vaccine (#1) 2024 9, 12/26/2017, 01/29/2017, Additional history exists Fall Risk Assessment 12/27/2024 12/28/2023 Zoster Vaccine Completed 01/31/2019, 08/24, 08/31/2016, Additional history exists Medical Devices Implanted Type Area Mold Loft Worker Device Identifier Shelf Expiration Date Model / Serial / Lot Patch Hemostatic Tachosil L9.5 Cm X W4.8 Cm Absorbable Fibrin Sealant - [id number] Implanted:Qty: 1 on 08/08/2017 by Basim Pacheco MD at [facility] Other - see comments N/A: Heart [facility] 07/25/2018 [id number] / / [id number] Wire Heart Patch Hemostatic Tachosil L9.5 Cm X W4.8 Cm Absorbable Fibrin Sealant - [id number] Implanted:Qty: 1 on 08/08/2017 by Basim Pacheco MD at [facility] N/A: Heart [facility] 05/31/2018 [id number] / / [id number] Patch Hemostatic Tachosil L9.5 Cm X W4.8 Cm Absorbable Fibrin Sealant - [id number] Implanted:Qty: 1 on 08/08/2017 by Basim Pacheco MD at [facility] N/A: Heart [facility] 07/25/2018 [id number] / / [id number] Explanted Type Area Mold Loft Worker Device Identifier Shelf Expiration Date Model / Serial / Lot [employer] Stent Ureteral Set Double Pigtail Radiopaque Tip Universa [id number] Polyurethane Hydrophilic Coated [id number] - [id number] - [id number] Implanted:Qty: 1 on 02/08/2023 by Jose Perez MD at [facility] Explanted:Qty: 1 on 04/04/2023 by Jose Perez MD Stent Right: Urethra [employer] [id number] 10/04/2025 [id number] / [id number] / [id number] Procedures Procedure Name Priority Date/Time Associated Diagnosis Comments URINALYSIS, MICROSCOPIC ONLY Routine 12/18/2024 12:02 PM CDT Malignant neoplasm of urinary bladder, unspecified site (HCC) URINALYSIS AND REFLEX TO MICROSCOPIC AND CULTURE Routine 12/18/2024 12:02 PM CDT Malignant neoplasm of urinary bladder, unspecified site (HCC) MEASURE POST VOID RESIDUAL Routine 12/18/2024 12:01 PM CDT Malignant neoplasm of urinary bladder, unspecified site (HCC) CYTOLOGY Routine 12/18/2024 12:01 PM CDT Malignant neoplasm of urinary bladder, unspecified site (HCC) POCT URINALYSIS DIPSTICK Routine 12/18/2024 12:00 PM CDT Malignant neoplasm of urinary bladder, unspecified site (HCC) from Last 3 Months Results * (ABNORMAL) Urinalysis reflex to microscopic and culture Urine, bladder (12/18/2024 12:02 PM CDT) Color, ur Yellow Yellow Comment:Testing performed by : [address] [address] Clarity, ur Clear Clear MERISSA Comment:Testing performed by : [address] [address] Specific gravity, ur 1.013 1.003 - 1.030 MERISSA Comment:Testing performed by : [address] [address] pH, urine 6.0 MERISSA Comment: Interpretive Data U rine pH is affected by diet, medications, systemic acid-base disturbances, and renal tubular function. pH may affect urinary stone formation. For example, urine pH below 6.0 may help reduce the tendency for calcium phosphate stones and pH greater than 6.0 may reduce the tendency for uric acid stone formation. Source: [facility] Current Interpretive Data was last revised on 2017 Testing performed by: [address] [address] Protein, ur ql Negative Negative MERISSA Comment:Testing performed by : [address] [address] Glucose, ur ql Negative Negative MERISSA Comment:Testing performed by : [address] [address] Ketones, ur Negative Negative MERISSA Comment:Testing performed by : [address] [address] Bilirubin, ur Negative Negative MERISSA ALEX Comment:Testing performed by : [facility], [address] [place] [address], [place]., [address] Blood, ur 1+(A) Negative MERISSA ALEX Comment:Testing performed by : [address], [place]., [address] Urobilinogen, ur <2.0 <2.0 mg/dL MERISSA ALEX Comment:Testing performed by : [address], [place]., [address] Nitrite, ur Negative Negative MERISSA ALEX Comment:Testing performed by : [address], [place]., [address] Leukocyte esterase, ur Negative Negative MERISSA ALEX Comment:Testing performed by : [address], [place]., [address] UA reflex comment Reflex to microscopic UA will be performed. MERISSA ALEX Comment:Testing performed by : [address], [place]., [address] Urine, bladder 12/18/2024 12 :02 PM CDT 12/18/2024 2:04 PM CDT Dinesh Evangelista MD LAB MICROBIOLOGY - GENERAL ORDER RICCARDO Final Result MERISSA ALEX [facility] Department of Laboratories [place], [place] [id number] * (ABNORMAL) Urinalysis, microscopic only (12/18/2024 12:02 PM CDT) WBC, ur 0-5 0 - 5 /HPF Comment:Testing performed by : [address], [place]., [address] RBC, ur 11-20(A) 0 - 2 /HPF MERISSA ALEX Comment:Testing performed by : [address] [address] Epithelial cells, squamous, ur 6-10(A) 0 - 5 /HPF MERISSA ALEX Comment:Testing performed by : [address], [place]., [address] Culture Reflex Comment Reflex conditions for urine culture (WBC >10) not met. MERISSA ALEX Comment:Testing performed by : [facility], [address] [place] [address]., [address] Urine, bladder 12/18/2024 12 :02 PM CDT 12/18/2024 2:04 PM CDT Dinesh Evangelista MD LAB URINE ORDERABLES Final Resul t MERISSA ALEX [address] [facility] Department [place] [address] * Measure post void residual (12/18/2024 12:01 PM CDT) Narrative Snehal Lucio, A - 12/18/2024 12:01 PM CDT Measurement of Post Void Residual urine and/or bladder capacity PVR = 59 ml Dinesh Evangelista MD NURSING ASSESSMENTS Final Result * Cytology (12/18/2024 12:01 PM CDT) Fluid (Urine, catherized (Cytology)) 12/18/2024 12:01 PM CDT 12/18/2024 2:11 PM CDT Narrative PATHOLOGY [facility] - 12/22/2024 1:36 PM CDT EPIC results best viewed via link to PDF [facility] Latanya Tellez [facility] [place] [address] Note to Patients: This report may contain a detailed description of human tissue sent by a health care provider to the laboratory for pathologic evaluation. The content of this report is essential for diagnosis and may provide important critical findings. This information may be unfamiliar to patients to review without a medical professional present. It is advised that the patient review this report in the presence of a health care provider who can answer questions and explain the details. CYTOPATHOLOGY REPORT FINAL Patient Name: MARLEN GARCIA Gender: M : 1940 (Age: 84) Address: [address] [place] [phone] [facility] #: [id number] Taken:12/18/2024 Received:12/18/2024 Reported: 12/22/2024 Patient Type: E SPECIMEN Service: DEFAULT Location: Physician(s): Dinesh Evangelista M.D. FINAL DIAGNOSIS A. Urine, catheterized bladder: - Negative for high-grade urothelial carcinoma 12/22/2024 13:36 By this signature, I attest that the above diagnosis is based upon my personal examination of the slides(and/or other material indicated in the diagnosis). Sukhdev Farnsworth M.D. Report Electronically Reviewed and Signed Out By Sukhdev Farnsworth M.D. 12/22/2024 13:36:49 LUIS M Nair (ASCP) Gross Description A. Urine, catheterized bladder: 20 ml orange fluid in CytoRich Red vial - 1 Pap stained Cytospin. (ep) Clinical Diagnosis and History bladder cancer REPORT IMAGES AND SCANNED DOCUMENTS, IF INCLUDED, ONLY VIEWABLE IN PDF VERSION OF REPORT The performance characteristics of some immunohistochemical stains, in-situ hybridization and fluorescence in-situ hybridization tests and immunophenotyping by flow cytometry cited in this report (if any) were determined by the Surgical Pathology and Flow Cytometry Departments at [facility] as part of an ongoing quality control engineering technician program and in compliance with federally mandated regulations drawn from the Clinical Laboratory Improvement Act of 1988 (CLIA '88). Some of these tests rely on the use of analyte specific reagents and are subject to specific labeling requirements by the US Food and Drug Administration. Such diagnostic tests may only be performed in a facility that is certified by the Department of Health and Human Services as a high complexity laboratory under CLIA '88. The FDA has determined that such clearance or approval is not necessary. This test is used for clinical purposes. It should not be regarded as investigational or for research. Nevertheless, federal rules concerning the medical use of analyte specific reagents require that the following disclaimer be attached to the report: This test was developed and its performance characteristics determined by the Surgical Pathology and Flow Cytometry Departments of [facility]. It has not been cleared or approved by the U. S. Food and Drug Administration. Dinesh Evangelista MD LAB CYTOLOGY ORDERABLES Final Re sult PATHOLOGY [facility] * (ABNORMAL) POCT urinalysis dipstick (12/18/2024 12:00 PM CDT) Color, Urine, POC Yellow Clarity, ur, POC Clear Clear Glucose, ur, POC Negative Negative Bilirubin, ur, POC Negative Negative Ketones, ur, POC Negative Negative Specific [place], POC 1.010 1.003 - 1.030 Blood, ur, POC 2+(A) Negative pH, ur, POC 6.0 5.0 - 8.0 Protein, ur, POC Negative Negative Urobilinogen, urine, POC 0.2 0.2 - 1.0 mg/dL Nitrite, ur, POC Negative Negative Leukocytes, ur, POC Negative Negative Lot Number 0 Urine 12/18/2024 12:0 0 PM CDT Dinesh Evangelista MD POINT OF CARE TEST ORDERABLES Fi nal Result from Last 3 Months Insurance HEALTHCARE HEALTHCARE Advance Directives For more information, please contact: [phone] * Full Code (Latest Code Status on File) Date Activated Date Inactivated Comments 08/31/2017 5:45 AM 02/08/2023 12:01 PM * Full Code Date Activated Date Inactivated Comments 08/08/2017 5:44 PM 08/28/2017 4:41 PM * Full Code Date Activated Date Inactivated Comments 07/31/2017 1:17 PM 08/01/2017 10:22 PM Care Teams Straight Tooth Gear Generator Operator Relationship Specialty Start Date End Date Piero Cabrera MD [address] [place] [address] PCP - General Family Medicine 12/13/20 Evonne Cordova PA [address] [place] [address] Referring Physician Physician Coremaker Floor 01/03/23 Jeffry Cooper MD [address] [facility] [address] [facility], [facility] [address] [place] [address] Heavy Forger Cardiovascular Disease 08/03/23 Beck Cabezas MD [address] DEPT OPHTHALMOLOGY, [facility] [address] [place] [address] Surgeon Ophthalmology 08/24/23
--- OUTSIDE RECORDS SUMMARY | 2025-03-12 12:09 | XMS_ITS | Patient Health Record ---
Author Organization [facility] Address [address] [place], [place] [id number] Care Team Providers Care Auditing Coder Name Role Phone Eze Song Primary Care Provider Maritza Garrick Bui Unavailable [phone] Allergies No Known Allergies Reason For Referral No Information Medications Medication SIG (Take, Route, Frequency, Duration) Notes Start Date End Date Status Tamsulosin HCl 0.4 MG TAKE 2 CAPSULES BY MOUTH ONCE A DAY; Duration: 90 Active Carvedilol 6.25 MG 1 tablet Orally twic e a day Active diphenydamine hcl 25 every day Active Finasteride 5 MG TAKE 1 TABLET BY CURT TH EVERY DAY; Duration: 90 Active Docusate Sodium 100 MG 1 capsule as need ed Orally Once a day Active Omeprazole 20 MG 1 tablet Orally twic e a day Active Furosemide 40 MG 1 tablet Orally 3 ti mes per week Active Albuterol Sulfate HFA 108 (90 Base) MCG/ACT 2 puffs as needed Inhalation every 6 hrs Active Aspirin Adult Low Strength 81 MG 1 tablet Orally Once a day Active Atorvastatin Calcium 40 MG 1 tablet Oral ly Once a day Active Social History Tobacco Use: Social History Observation Description Date Details (start date - stop date) Never Smoker NA - NA Alcohol: Question Answer Notes Did you have a drink containing alcohol in the p ast year? No Points 0 Interpretation Negative Smoking Question Answer Notes Are you a: never smoker Problems Problem Type SNOMED Code ICD Code Onset Dates Problem Status W/U Status Risk Notes Problem Chronic kidney disease stage 3 (disorder) (778488950) Chronic kidney disease, stage III (moderate) (N18.3) Active confirmed Problem Chronic kidney disease stage 3A (disorder) (229232293) Chronic kidney disease (CKD) stage G3a/A1, moderately decreased glomerular filtration rate (GFR) between 45-59 mL/min/1.73 square meter and albuminuria creatinine ratio less than 30 mg/g (N18.3) Active confirmed Problem Coronary artery disease (78894623) CAD (coronary artery disease) (I25.10) Active confirmed Problem Anemia in chronic kidney disease (066697499) Anemia in chronic kidney disease (D63.1) Active confirmed Plan Of Treatment Pending Test Test Name Order Date Iron and TIBC 09/10/2017 CBC With Differential/Platelet 8 Renal Panel (10) 09/10/2017 Renal Panel (10) 09/28/2020 Renal Panel (10) 04/08/2019 Renal Panel (10) 09/30/2019 Renal Panel (10) 03/30/2020 Magnesium 03/30/2020 Magnesium 09/30/2019 Magnesium 10/08/2018 Magnesium 04/08/2019 Magnesium 09/14/2017 Magnesium 12/21/2017 Magnesium 04/23/2018 Magnesium 09/28/2020 CBC 04/23/2018 Renal Panel 09/14/2017 Renal Panel 10/08/2018 Renal Panel 04/23/2018 Renal Panel 12/21/2017 protein creatinine ratio random urine Future Test Test Name Order Date Iron and TIBC 09/14/2017 Ferritin 09/14/2017 Basic Metabolic Panel 09/14/2017 Insurance Providers Payer Name Payer Address Payer Phone Subscriber Number Group Number Insured Name Patient Relationship to Insured Coverage Start Date Coverage End Date [facility] [address] [place] [phone] [id number] Edu Garcia Self - patient is the insured
--- OUTSIDE RECORDS SUMMARY | 2025-03-12 12:09 | XMS_ITS ---
Author Organization [facility] [address] Address [address] [place] [address] Care Team Providers Care Mold Engraver Name Role Phone Piero Cabrera MD Primary Care Provider Evonne Cordova Unavailable [phone] Jeffry Cooper MD Unavailable [phone] Beck Cabezas MD Unavailable [phone] Active Problems Problem Noted Date Diagnosed Date [...] artery disease of n ative artery of [place] heart with stable angina pectoris 07/27/2017 Abnormal stress test 07/27/2017 Cardiomyopathy 07/27/2017 Palpitations 07/27/2017 Lipid screening 07/27/2017 Chest heaviness 07/27/2017 Encounter for preventive health examination 06/2017 Evaluation by medical service required 7 Pleural effusion Chronic obstructive pulmonary disease Current Treatment and Therapy Plans Intravesicular gemCITabine / DOCEtaxel - Maintenance - 28 Day Cycles - Bladder* Plan Start Date:04/14/2024 Plan Provider:Dinesh Evangelista MD Linked Problems 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) Treatment Medications Current Day (Day 1 , Cycle 2 - Planned for 05/13/2024) Next Day (Day 1, Cycle 3 - Planned for 06/10/2024) DOCEtaxel (TAXOTERE)DOCEtaxel (TAXOTERE) intravesical bladder instillation (vial 20mg/ml)gemcitabine (GEMZAR)gemcitabine (GEMZAR) chemo bladder instillation (QS 50 mL bag) (using 38 mg/mL gemcitabine) (J9201)gemcitabine chemo bladder instillation (QS 50 mL bag) (using 100 mg/mL gemcitabine) (J9196) DOCEtaxeL (TAXOTERE) 37.5 mg in sodium chloride 0.9% (PVC-FREE) 50 mL intravesical bladder installationgemcitabine (J9196) 1,000 mg in sodium chloride 0.9% 50 mL bladder instillation DOCEtaxeL (TAXOTERE) 37.5 mg in sodium chloride 0.9% (PVC-FREE) 50 mL intravesical bladder installationgemcitabine (J9196) 1,000 mg in sodium chloride 0.9% 50 mL bladder instillation Past Treatment and Therapy Plans Oncology Chemotherapy Treatment Plan Name Start Date Discontinue Date Treatment Medications Discontinue Reason Plan Provider Cycles Intravesicular gemCITabine / DOCEtaxel Weekly x 6 - Bladder 01/14/20 24 04/10/2024 DOCEtaxel (TAXOTERE)gem citabine (GEMZAR) Provider Discretion Dinesh Evangelista MD Treatment not started Intravesicular BCG (TAMEKA ) Maintenance - Bladder 09/26/2023 12/31/2023 bacillus of calmette and geurin (BCG live) (TAMEKA)BCG live (TAMEKA) syringe 50 mg (TAMEKA) Progression Dinesh Evangelista MD 1 of 6 cycles started Lifetime Dose Tracking * Chemical Lifetime Dose Automatic Entry Manual Entr y Fluoro Time 4.9 minutes 0 minutes 4.9 minutes Air kerma at the reference point (Ka,r) 302 mGy 0 mGy 302 mGy
--- OUTSIDE RECORDS SUMMARY | 2025-03-12 12:09 | XMS_ITS | Clinical Summary ---
Author Organization [facility] Address [address] [place] [address] Phone Care Team Providers Care Dietary Clerk Name Role Phone Piero Cabrera MD Primary Care Provider [phone] Allergies Active Allergy Reactions Criticality Noted Date Comments Donepezil Diarrhea,Headache,Na usea And Vomiting,Vomiting Low 01/31/2021 Other reaction(s): Stomach upset Medications albuterol HFA (PROVENTIL HFA) 108 (90 Base) MCG/ACT inhaler Inhale 2 puffs 08/28/2017 Active aspirin 325 MG EC tablet Take 325 mg by mouth daily Active benzonatate (TESSALON) 100 MG capsule TAKE 1 CAPSULE BY MOUTH THREE TIMES A DAY NEEDED FOR COUGH 10/26/2021 Active Breztri Aerosphere 160-9-4.8 MCG/ACT aerosol Inhale 2 puffs 2 (two) times a day 10/17/2021 Active carvedilol (COREG) 6.25 MG tablet Take 6.25 mg by mouth 2 (two) times a day with meals 10/22/2021 Active diphenhydrAMINE (BENADRYL) 25 MG capsule Take 50 mg by mouth Active finasteride (PROSCAR) 5 MG tablet Take 5 mg by mouth 1 (one) time each day 11/29/2021 Active furosemide (LASIX) 40 MG tablet Take 40 mg by mouth daily 02/07/2021 Active nitroglycerin (NITROSTAT) 0.4 MG SL tablet 12/13/2021 Active pantoprazole (PROTONIX) 40 MG EC tablet Take 40 mg by mouth every 12 (twelve) hours 10/14/2021 Active rosuvastatin (CRESTOR) 40 MG tablet Take 40 mg by mouth 1 (one) time each day 11/23/2021 Active sodium chloride (CHRISTA 128) 5 % ophthalmic solution INSTILL 1 DROP INTO BOTH EYES TWICE A DAY 11/29/2021 Active tamsulosin (FLOMAX) 0.4 MG 24 hr capsule Take 0.8 mg by mouth 1 (one) time each day 10/15/2021 Active Stiolto Respimat 2.5-2.5 MCG/ACT aerosol solution inhaler INHALE 2 PUFFS ONCE DAILY 11/28/2021 Active Active Problems Problem Noted Date Diagnosed Date Chronic systolic congestive heart failure 2021 Dyspnea on exertion 12/13/2021 Chronic obstructive pulmonary disease 12/11/2021 Pleural effusion 12/11/2021 Atypical chest pain 05/20/2018 Peripheral vascular disease 10/23/2017 Pulmonary hypertension 10/23/2017 Cardiomyopathy 07/27/2017 Cardiovascular stress test abnormal 07/27/2017 Coronary atherosclerosis 07/27/2017 Finding of region of thorax 07/27/2017 Hyperlipidemia 07/27/2017 Palpitations 07/27/2017 Patient encounter status 07/27/2017 Stage 3 chronic kidney disease 07/27/2017 Family History Medical History Relation Comments Heart disease Brother Cancer Father Alzheimer's disease Mother Relation Status Comments Brother Father Mother Social History Tobacco Use Types Packs/Day Years Used Date Smoking Tobacco: Former Cigarettes 1 40 0 [birth year]/26/1957 - 03/26/1997 Smokeless Tobacco: Never Alcohol Use Standard Drinks/Week Comments Yes 0 (1 standard drink = 0.6 oz pur e alcohol) Sex and Gender Information Value Date Recorded Sex Assigned at Male 12/14/2021 10:25 AM MDT Legal Sex Male 11:26 AM MDT Gender Identity Male 12/14/2021 10:25 AM MDT Sexual Orientation Straight 12/14/2021 10 :25 AM MDT Last Filed Vital Signs Vital Sign Reading Time Taken Comments Blood Pressure 110/78 12/14/2021 9:31 AM CDT Pulse - - Temperature 36.2 C (97.1 F) 12/14/2021 9:31 AM CDT Respiratory Rate 18 12/14/2021 9:31 AM CDT Oxygen Saturation - - Inhaled Oxygen Concentration - - Weight 69.9 kg (154 lb) 12/14/2021 9:31 AM CDT Height 172.7 cm (5' 8) 12/14/2021 9:31 AM CDT Body Mass Index 23.42 12/14/2021 9:31 AM CDT Plan of Treatment Health Maintenance Due Date Last Done Comments Pneumococcal PPSV23/PCV13 65 + Years / Low and Medium Risk (1 of 2 - PCV) 1988 Influenza Vaccine (#1) 2024 Insurance Care Teams Dietary Clerk Relationship Specialty Start Date End Date Piero Cabrera MD [address] [facility] [address] [facility] [address] [place] [id number] PCP - General Internal Medicine 11/07/21
--- OUTSIDE RECORDS SUMMARY | 2025-03-12 12:09 | XMS_ITS | Encounter Summary ---
Author Organization [facility] Address [address] [place] [address] Phone Care Team Providers Care Tobacco Stripper Hand Name Role Phone Piero Cabrera MD Primary Care Provider Evonne Cordova Unavailable [phone] Jeffry Cooper MD Unavailable [phone] Beck Cabezas MD Unavailable Encounter Details Date Type Department Care Team (Late st Contact Info) Description 07/08/2023 [facility] - [facility] Medicine Urology [address] [facility] Advanced Medicine 11th [place] [address] [place] [address] Jose Perez MD [address] [place] [address] Re: resection of bladder tumor for August 10, 2023 Social History Tobacco Use Types Packs/Day Years Used Date Smoking Tobacco: Former Cigarettes 988 - 2017 Smokeless Tobacco: Former Chew Quit: 08/08/2017 Comments:pt uses e cigarette Alcohol Use Standard Drinks/Week Comments Yes 0 (1 standard drink = 0.6 oz pur e alcohol) 2x/month AUDIT-C Answer Date Recorded Q1: How often do you have a drink containing alc ohol? Monthly or less 04/04/2023 Q2: How many drinks containi ng alcohol do you have on a typical day when you are drinking? 1 or 2 04/04/2023 Q3: How often do you have si x or more drinks on one occasion? Less than monthly 04/04/2023 Personal Safety Answer Date Recorded Have you ever been in or are you currently in a harmful physical or emotional relationship or is someone making you feel afraid or unsafe? 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 Gender Identity Male 12/14/2020 7:56 AM CDT Sexual Orientation Straight 12/14/2020 7: 56 AM CDT documented as of this encounter Plan of Treatment Not on file documented as of this encounter Visit Diagnoses Not on filedocumented in this encounter Care Teams Tobacco Stripper Hand Relationship Specialty Start Date End Date Piero Cabrera MD [address] [place] [address] PCP - General Family Medicine 12/13/20 Evonne Cordova PA [address] [place] [address] Referring Physician Physician Furnace Firer 01/03/23 Jeffry Cooper MD [address] [facility] [address] [facility] [address], [facility] [address] [place] [address] Bristle Machine Operator Cardiovascular Disease 08/03/23 Beck Cabezas MD [address] DEPT OPHTHALMOLOGY, [facility] [address] [place] [address] Surgeon Ophthalmology 08/24/23 documented as of this encounter
== END 2025-03-12 10:54 | disposition home or self-care (01) ==
PROVIDERS: PCP Family Medicine; Visit Provider Physician Assistant
DX: R91.8 Other nonspecific abnormal finding of lung field (principal); J44.9 Chronic obstructive pulmonary disease, unspecified; J40 Bronchitis, not specified as acute or chronic; I27.20 Pulmonary hypertension, unspecified; I71.40 Abdominal aortic aneurysm, without rupture, unspecified
CPT/HCPCS: 71250